=== PATIENT | female | born 1985 | race Two or more races ===

== ENCOUNTER 2019-01-04 00:56 | Emergency (ER) | payer SELFPAY ==
[~2019-01-04] VITALS: Ht 165.1 cm; Wt 79.4 kg
[2019-01-04 01:03] VITALS: BP 160/99
[2019-01-04] MEDS ORDERED: BENZOCAINE (DENTAL) 20 % SPRAY 60ML MT ONE (01:45)
[2019-01-04] MEDS ORDERED: PENICILLIN G PROC & BENZAT 1200000 UNITS/2 ML SYRG IM ONE (01:45)
[2019-01-04] MEDS ORDERED: HYDROcodone-ACET 10/325MG TAB PO ONE (01:45)
== END 2019-01-04 02:21 | disposition home or self-care (01) ==
LOC: ER 00:59
DX: S02.5XXA Fracture of tooth (traumatic), initial encounter for closed fracture (principal); W19.XXXA Unspecified fall, initial encounter; Y93.89 Activity, other specified; Y99.8 Other external cause status; Y92.89 Other specified places as the place of occurrence of the external cause
CPT/HCPCS: 96372; 99283; J0558